=== PATIENT | male | born 1995 | race Caucasian/White ===

== ENCOUNTER → 2017-04-17 | Outpatient (CLI) | payer BC ==
--- NOTE | 2017-04-17 14:21 | DIAGNOSTIC IMAGING REPORT ---
RIGHT KNEE 4 OR MORE CLINICAL HISTORY: 21 years-old Male presenting with RIGHT KNEE PAIN Right. TECHNIQUE: Bilateral frontal standing views of the knees and lateral, tunnel, and sunrise views of the right knee were obtained. COMPARISON: None. FINDINGS: 2 screw fixation of the medial right femoral condyle and a fixation screw through the proximal tibial metaphysis noted, likely related to MCL repair. An additional surgical device is noted in the medial tibial plateau with a track subjacent to the medial tibial plateau. Both medial and lateral compartment joint space loss in the right knee is noted in comparison to the left, although greater in the medial compartment. Minimal tricompartmental osteophytosis is noted. No significant subchondral sclerosis or cystic change is radiographically evident. No acute fracture. Left knee normal-appearing. IMPRESSION: Postsurgical changes of the right knee with tricompartmental degenerative change and medial greater than lateral joint space narrowing. Electronically signed by: Alvaro Elliott M.D. 04/17/2017 2:20 PM Dictated Date/Time: 04/17/2017 2:17 PM
== END | disposition home or self-care (01) ==
LOC: C.RDSM 14:03
PROVIDERS: ATTEND Physician Assistant
DX: M25.561 Pain in right knee (principal)